=== PATIENT | male | born 1960 | race Caucasian/White ===

== ENCOUNTER 2025-05-02 05:25 | Observation (INO) ==
--- NOTE | 2025-04-04 10:02 | PAT Medication Instructions ---
Medication Instructions Date of Service April 04, 2025 Home Medications Medication Instructions Recorded albuterol sulfate 90 mcg/actuation 2 puff inhalation Q6H PRN 12/10/24 aerosol inhaler shortness of breath or wheezing #3 units tramadol 50 mg tablet 50 mg PO Q6H PRN pain #6 tabs 03/04/25 albuterol sulfate 90 mcg/actuation aerosol inhaler 2 puff inhalation Q6H PRN tafluprost (PF) 0.0015 % eye drops in a dropperette (Zioptan (PF)) 1 drp ophthalmic (eye) HS allopurinol 300 mg tablet 300 mg PO QAM amlodipine 10 mg-olmesartan 40 mg tablet 1 tab PO QAM fexofenadine 180 mg tablet (Rut Allergy) 180 mg PO QAM metoprolol succinate 100 mg tablet,extended release 24 hr 100 mg PO QAM tramadol 50 mg tablet 50 mg PO Q6H PRN DO NOT take the morning of surgery fexofenadine 180 mg tablet (Rut Allergy) 180 mg PO QAM Take morning of surgery With a small sip of water, OTHERWISE NOTHING TO EAT OR DRINK AFTER MIDNIGHT: albuterol sulfate 90 mcg/actuation aerosol inhaler 2 puff inhalation Q6H PRN(use if needed; please bring with you to hospital day of surgery if possible) allopurinol 300 mg tablet 300 mg PO QAM amlodipine 10 mg-olmesartan 40 mg tablet 1 tab PO QAM metoprolol succinate 100 mg tablet,extended release 24 hr 100 mg PO QAM tramadol 50 mg tablet 50 mg PO Q6H PRN(if needed) Take evening before surgery albuterol sulfate 90 mcg/actuation aerosol inhaler 2 puff inhalation Q6H PRN(if needed) tafluprost (PF) 0.0015 % eye drops in a dropperette (Zioptan (PF)) 1 drp ophthalmic (eye) HS tramadol 50 mg tablet 50 mg PO Q6H PRN(if needed) Other Notes If you have any questions please call us at [phone] or [phone] or [phone] or [phone]
--- NOTE | 2025-04-09 08:57 | Anesthesiology Consultation ---
Date of Service April 09, 2025 Assessment & Plan (1) Encounter for pre-operative examination: Chart Review Chart Review: Acceptable Risk for Surgery (pending preop labs ) and Patient seen in Pre Admission Testing - Awaiting CBC with diff, PRP, coags from Vigiglobe (patient was going after PAT appt 04/09/25) Pt currently scheduled as 23 hours observation. If surgeon decides to change patient to Same Day Joint, patient would be acceptable risk for TKA, pending patient is motivated, has good support and surgeon's office completes [facility] preop requirements. Per PAT appt on 04/09/25, no recent illness/disease exposures, illness related symptoms, or recent illness/disease positive tests. Will leave to surgeon's discretion if preop Covid testing needed Teaching & Discussion Pre-Anesthesia Teaching/Discussion Notes: Instructed NPO after midnight before surgery,except medications with 15 cc of water. Medication instructions provided according to the [facility] guidelines. History Surgery Operation Date: 05/02/25 12:00 Proposed Procedures p Robotic Assisted Right Total Knee Arthroplasty - Nathan Osborne DO Height/Weight Height: 5 ft 6 in Weight: 122 kg Allergies Allergy/AdvReac Type Severity Reaction Status Date / Time No Known Allergies Allergy Verified 04/01/25 08:26 Medications Home Medications Medication Instructions Recorded Confirmed Last Taken albuterol sulfate 90 mcg/actuation 2 puff inhalation Q6H PRN 12/10/24 04/03/25 Unknown aerosol inhaler shortness of breath or wheezing #3 units tafluprost (PF) 0.0015 % eye drops 1 drp ophthalmic (eye) HS 02/17/25 04/03/25 Unknown in a dropperette (Zioptan (PF)) allopurinol 300 mg tablet 300 mg PO QAM 02/21/25 04/03/25 03/04/25 05:00 amlodipine 10 mg-olmesartan 40 mg 1 tab PO QAM 02/21/25 04/03/25 03/04/25 05:00 tablet fexofenadine 180 mg tablet 180 mg PO QAM 02/21/25 04/03/25 Unknown (Rut Allergy) metoprolol succinate 100 mg 100 mg PO QAM 02/21/25 04/03/25 03/04/25 05:00 tablet,extended release 24 hr tramadol 50 mg tablet 50 mg PO Q6H PRN pain #6 tabs 03/04/25 04/03/25 Unknown Past Medical History Medical History History of asthma well controlled, rarely needs inhaler. History of gout no recent flares Hypertension Obesity Obstructive sleep apnea couldn't tolerate CPAP Osteoarthritis Seasonal allergies Exercise / Class Metabolic Activity II 4-5 Yardwork/Stairs/Walk up hill (one flight of stairs - no chest pain or SOB - recently hiking in [place] ) Past Family History Family History Mother Breast cancer Alzheimer disease Father Alzheimer disease Hypertension Prostate cancer Stroke Other Cancer Denies family history of Ovarian cancer Diabetes Depression Heart disease Myocardial infarction Lung cancer Colorectal cancer Past Surgical History Surgical History (Updated 04/09/25 @ 09:13 by Leann Green PA-C) H/O colonoscopy Colonoscopy 10/15/21, repeat 10 years in 2031 History of cataract surgery bilateral History of hand surgery (03/04/25) - right index finger mass excision (done under local anesthesia only) Hx of vasectomy under local Past Anesthesia History No Hx of Anesthesia Complications and No Family Hx of Anesthesia Complications History of PONV No Hx of PONV and No Hx of Motion Sickness Social History Smoking Status: Never smoker Do You Dip or Chew Tobacco: No Hx Alcohol Use: Yes Alcohol type: beer and wine alcohol intake frequency: a few times a month Hx Substance Use: No substance use type: does not use Review of Systems Patient denies chest pain, shortness of breath, dyspnea on exertion, reflux, cough, wheezing, palpitations. No hx of seizures, stroke, HI. No hx of blood clots or blood transfusions Physical Exam Vital Signs VITALS BP 148/89 P 67 TEMP 98.0 SP02 96% RESP 16 Constitutional no acute distress ENMT Mouth: no TMJ clicking Thyromental Distance: > or= 3.5 Finger Breadths (4.0) Mallampati Class: II (smaller airway ) Partial upper denture Neck neck extension not limited Respiratory normal respiratory effort; no respiratory distress Auscultation: lungs clear to auscultation bilaterally; no wheezes Cardiovascular Rate/Rhythm: regular rate and regular rhythm Heart Sounds: no murmur Vessels: no carotid bruit Musculoskeletal Spine: + pain with cervical ROM (mild) Extremities: extremities normal to inspection Psychiatric Orientation: alert Lab Results Anesthesia Preop Results Results Anesthesia Widget: Blood Type A Positive 04/09/25 Antibody Screen NEGATIVE 04/09/25 Testing Electrocardiogram Date: 02/19/25 Findings: + NSR @ (63bpm) Normal EKG per cardio Chest X-Ray Date: 04/09/25 Findings: + NAD
--- NOTE | 2025-05-01 12:22 | History & Physical Report ---
Date of Service May 01, 2025 Assessment & Plan (1) Osteoarthritis of right knee: We will proceed with a right total knee arthroplasty. Postoperatively, he can be started on aspirin for DVT prophylaxis and kept overnight in the hospital for postop medical management. He plans to use energy physical therapy at discharge. History of Present Illness Chief Complaint: Osteoarthritis of the right knee. Primary Care Provider: Cristopher Oneill DO Alejandro is a pleasant 64-year-old male who has been dealing with chronic increasing right knee pain. X-rays and clinical exam have been diagnostic for advanced osteoarthritis of the right knee. He has been treated by another provider in our office. He has had multiple injections. Unfortunately, he is still dealing with a lot of knee pain. After failed extensive conservative treatment, he has elected to proceed with a right total knee arthroplasty. Allergies Allergy/AdvReac Type Severity Reaction Status Date / Time No Known Allergies Allergy Verified 04/01/25 08:26 Home Medications Medication Instructions Recorded Confirmed Type albuterol sulfate 90 mcg/actuation 2 puff inhalation Q6H PRN 12/10/24 04/03/25 Rx aerosol inhaler shortness of breath or wheezing #3 units tafluprost (PF) 0.0015 % eye drops 1 drp ophthalmic (eye) HS 02/17/25 04/03/25 History in a dropperette (Zioptan (PF)) allopurinol 300 mg tablet 300 mg PO QAM 02/21/25 04/03/25 History amlodipine 10 mg-olmesartan 40 mg 1 tab PO QAM 02/21/25 04/03/25 History tablet fexofenadine 180 mg tablet 180 mg PO QAM 02/21/25 04/03/25 History (Rut Allergy) metoprolol succinate 100 mg 100 mg PO QAM 02/21/25 04/03/25 History tablet,extended release 24 hr tramadol 50 mg tablet 50 mg PO Q6H PRN pain #6 tabs 03/04/25 04/03/25 Rx Past Med/Surg History Problem List (Updated 05/01/25 @ 12:22 by Nathan Osborne DO) Osteoarthritis of right knee Encounter for pre-operative examination History of hand surgery History of gout Obstructive sleep apnea Osteoarthritis of knees, bilateral DJD (degenerative joint disease) of knee Left knee pain HTN (hypertension) Medical History Obesity Obstructive sleep apnea couldn't tolerate CPAP History of gout no recent flares Hypertension Osteoarthritis History of asthma well controlled, rarely needs inhaler. Seasonal allergies Surgical History History of hand surgery (03/04/25) - right index finger mass excision (done under local anesthesia only) History of cataract surgery bilateral H/O colonoscopy Colonoscopy 10/15/21, repeat 10 years in 2031 Hx of vasectomy under local Family History Mother Breast cancer Alzheimer disease Father Alzheimer disease Hypertension Prostate cancer Stroke Other Cancer Denies family history of Ovarian cancer Diabetes Depression Heart disease Myocardial infarction Lung cancer Colorectal cancer Social History Smoking Status: Never smoker Second Hand Exposure: No; Do You Dip or Chew Tobacco: No; Tobacco Cessation Education Requested by Patient: No Hx Alcohol Use: Yes Alcohol type: beer and wine Alcohol Intake Frequency: 2-4 x/Month Hx Substance Use: No Preferred Language: Telugu Communication Ability: Effective Visual Impairment: No Limitations Hearing Ability: Normal Supply Clerk Required: No Beliefs That Will Affect Care: None marital status: Current Living Situation: Spouse current occupational status: employed How many Children do You have: 2 Other Information That Helps Us Care for You: No Feels Safe at Home: Yes Safety Concerns: Feels Safe At This Time Childhood Exposure to Second-Hand Smoke: Yes Diet: regular caffeine: Yes during the past year weight has: remained stable Dental Care, Regularly: Yes Physical Activity Frequency: Daily Physical Activity Frequency Comment: walking Seatbelt Use: always Sunscreen Use: Yes Assistive Devices: Denture - Upper Review of Systems All systems reviewed & are unremarkable except as noted in HPI & below. Physical Exam On physical exam of the right knee, he had a slight varus deformity. Tenderness palpation of the distal medial femoral condyle and over the medial joint line.. Constitutional WD/WN, vitals as above Eyes PERRL, conjunctivae normal, anicteric sclerae ENMT external ear and nose normal, oropharynx normal Neck trachea midline, no thyromegaly Respiratory normal respiratory effort Cardiovascular RRR, no murmur, no edema Gastrointestinal (Abdomen) normal bowel sounds, soft, nontender, no hepatosplenomegaly Psychiatric A+Ox3, euthymic affect Results & Data Results & Data Laboratory Results . Diagnostic Findings X-rays of the right knee show advanced medial compartmental arthritis with joint space narrowing, osteophyte formation, and peck-gl-wlhm tubulation. PG Care Time/CCT Total # of Minutes Spent Total Time Spent with Patient: Total time spent is greater than 50% in coordination of care (as documented) at patient's floor/unit and/or counseling patient: Coding Level of Care Code None Diagnoses Osteoarthritis of right knee M17.11
[2025-05-02] MEDS: FAMOTIDINE 20 MG TAB PO SCH (05:53)
[2025-05-02] MEDS: ACETAMINOPHEN 500 MG TAB PO SCH ×2 (05:53→13:13)
[2025-05-02] MEDS: GABAPENTIN 600 MG DOSE PO SCH (05:53)
[2025-05-02] MEDS: LR 500ML BOLUS, THEN 15ML/HR IV SCH (05:58)
[2025-05-02] MEDS ORDERED: BUPIVACAINE 0.5 % 5 MG/1 ML PF 10ML VIAL ONE (06:05)
[2025-05-02] MEDS ORDERED: ROPIVACAINE 0.5% 5 MG/ML 30 ML VIAL ONE (06:06)
[2025-05-02] MEDS ORDERED: BUPIVACAINE 0.25% PF 30 ML VIAL ONE (06:17)
[2025-05-02] MEDS ORDERED: EPINEPHrine INJ 1 MG/ML AMP ONE (06:18)
[2025-05-02] MEDS ORDERED: DEXAMETHASONE SOD INJ 4 MG/ML VIAL ONE (06:18)
--- NOTE | 2025-05-02 06:28 | History & Physical Bridge Note ---
Date of Service May 02, 2025 History & Physical Bridge Note I have examined the patient, reviewed the History & Physical and in the interval since the performance of the History & Physical I have noted the following changes of clinical significance: no changes noted
[2025-05-02] MEDS ORDERED: MIDAZOLAM HCL 1 MG/ML 2ML VIAL ONE (06:35)
[2025-05-02] MEDS ORDERED: LIDOCAINE 2% 2 ML VIAL/AMP(20MG/ML) INFIL ONE ×2 (06:36)
[2025-05-02] MEDS ORDERED: PROPOFOL IV EMULSION 10 MG/ML 100 ML VIAL IV ONE (06:37)
[2025-05-02] MEDS ORDERED: PROPOFOL IV EMULSION 10 MG/ML 20 ML VIAL IV ONE (06:37)
[2025-05-02] MEDS: TRANEXAMIC ACID 1,000 MG **IV Pre-op IV SCH (06:49)
[2025-05-02] MEDS ORDERED: ATROPINE SULFATE 0.1 MG/ML 10ML SYR IV PRN (06:59)
[2025-05-02] MEDS ORDERED: ONDANSETRON INJ 2 MG/ML 2 ML VIAL IV PRN ×2 (06:59→09:54)
[2025-05-02] MEDS ORDERED: PROMETHAZINE HCL 6.25 MG in SODIUM CHLORIDE 0.9% 50 ML IV PRN (06:59)
[2025-05-02] MEDS: ceFAZolin 3000MG 3,000 MG/72.5 ML BAG IV SCH (07:00)
[2025-05-02] MEDS ORDERED: KETAMINE HCL 10MG/ML SYR ONE (07:07)
[2025-05-02] MEDS ORDERED: PHENYLEPHRINE HCL 10 MG/ML VIAL ONE ×2 (07:14)
[2025-05-02] MEDS ORDERED: VASOPRESSIN 20 UNIT/ML VIAL ONE (07:23)
[2025-05-02] MEDS: ORTHO JOINT ANESTHETIC ONE (07:34)
[2025-05-02] MEDS: ROPIV 0.5% 246mg, Ketorolac 30mg, EPINEPHrine 0.5mg in NSS INFIL SCH (07:34)
--- NOTE | 2025-05-02 08:23 | Operative Report ---
PG Post Operative Report Pre & Post Diagnosis Operation Date: 05/02/25 07:00 Pre-Op Diagnosis: Right Knee Arthritis Post-Op Diagnosis: Right Knee Arthritis I identified the patient and participated in the time-out.: Yes Procedure Operation Date: 05/02/25 07:00 Actual Procedures p Robotic Assisted Right Total Knee Arthroplasty, Cemented(Right) - Nathan Osborne DO Surgeon Nathan Osborne DO Molecular Spectroscopist Roderick Sahni PA-C Estimated Blood Loss 30 Findings Consistent with Post-Op Diagnosis Specimens Right femoral and tibial bone Description of Procedure Implants used: I used a [employer] total knee arthroplasty system with a size 9 standard PS femur, F tibia, 34 oval patella, and a size 12 CPS polyethylene bearing. All components were cemented in place with Biomet cement. Alejandro arrived [facility] for the above procedure. He was seen in the preoperative holding area and the operative extremity was identified and signed. he was given a preoperative antibiotic, TXA, a spinal anesthetic and an adductor nerve block. He was taken back to the operating room and laid on the table in supine position. He was given basic sedation. The operative knee was then prepped and draped in sterile fashion. A timeout was done, and the patient and the operative extremity was properly identified. A midline incision was made directly over the patella. Dissection was taken down to the extensor mechanism. A medial parapatellar arthrotomy was used. The medial retinaculum was released and the fat pad was mostly excised. The knee was flexed and the ACL, PCL, and meniscus were removed. The alignment of the knee replacement was assisted with a [employer] robotic knee. The femoral array was pinned in the distal femur and the tibial array was pinned using a percutaneous technique in the upper shaft of the tibia. The robot was appropriately calibrated and the structure of the knee was mapped out. The components were then manipulated on the screen to account for any malalignment and to assist in gap balancing. Once I was happy with the placement of the components on the screen, a distal femoral cutting guide was brought in place. The distal femur was then resected. The femur measured to be a size 9. A 4-in-1 cutting block was then put into place by the robot and 2 peg holes were drilled. The 4-in-1 cutting block was then impacted into place and anterior, posterior, and chamfer cuts were made. The cutting block was then brought down to the tibia and pinned into place. The proximal tibia was then resected. The posterior aspect of the knee was then opened up and any additional meniscus fragments and osteophytes were removed. The tibia measured to be a size F. The tibial plate was then placed in the appropriate rotation and the tibia was drilled and punched. Trial components were then placed. The patella was then everted and 9 mm was resected off the posterior aspect of the patella. The patella measured to be a size 34 oval. 3 peg holes were then drilled. A trial patella was placed. A size 12 CPS polyethylene insert was then trialed. The knee was brought through a full range of motion and felt to be stable. Trial components were then removed. The surrounding soft tissues were injected with 100 cc of an orthopedic pain control cocktail. All components were then cemented into place with Biomet cement. The final polyethylene insert was then snapped into place. Once cement was dry the tourniquet was deflated. Hemostasis was obtained. A dilute betadyne lavage was then done for 3 minutes. The joint was then irrigated with normal saline solution. The medial parapatellar arthrotomy was then closed with #1 Vicryl suture. The skin was ryan sed with 2-0 Vicryl, 3-0V lock suture, and Mike zip line. A soft compressive dressing was placed. He was then transferred to a hospital bed and taken to the postanesthesia care unit in stable condition. He tolerated the procedure well. Roderick Sahni PA-C, was present for the entire procedure. He was critical for patient positioning, prepping, draping, retraction exposure, wound closure and application of sterile dressing. I attest to the content of the Intraoperative Record and any orders documented therein. Any exceptions are noted below.
--- NOTE | 2025-05-02 09:11 | XRay Report ---
XR knee RT 1 or 2V routine CLINICAL HISTORY: Postoperative evaluation. COMPARISON: Right knee radiographs February 17, 2025. FINDINGS: Alignment of the total right knee arthroplasty is anatomic. There is no periprosthetic fra cture or unexpected radiopaque foreign body. IMPRESSION: Expected findings following total right knee arthroplasty. ACT 112: Negative or not required by law. Electronically signed by: Latrell Fallon M.D. 05/02/2025 9:09 AM
[2025-05-02] MEDS: dexAMETHasone**PF** 10 MG/ML VIAL IV SCH (09:53)
[2025-05-02] MEDS: LR 60ML/HR IV SCH (09:53)
[2025-05-02] MEDS ORDERED: HYDROmorphone INJ 0.5 MG/0.5 ML SYR IV PRN (09:54)
[2025-05-02] MEDS ORDERED: MAGNESIUM HYDROXIDE SUSP 30 ML UDC PO PRN (09:54)
[2025-05-02] MEDS ORDERED: METOCLOPRAMIDE HCL INJ 5 MG/ML 2 ML VIAL IV PRN (09:54)
[2025-05-02] MEDS ORDERED: ALBUTEROL HFA 8 GM INHALER INH PRN (09:54)
[2025-05-02] MEDS ORDERED: NALOXONE HCL 0.4 MG/1 ML VIAL/CARP IV PRN (09:54)
[2025-05-02] MEDS: SODIUM CHLORIDE 0.9% 1,000 ML IV SCH (10:33)
[2025-05-02] MEDS: KETOROLAC TROMETHAMINE 15 MG/ML VIAL IV SCH (11:15)
[2025-05-02] MEDS: DOCUSATE SODIUM 100 MG CAP PO SCH (11:15)
[2025-05-02] MEDS: MULTIVITAMIN TAB PO SCH (11:17)
[2025-05-02] MEDS: ASPIRIN 81 MG ECTAB PO SCH (11:17)
[2025-05-02] MEDS: NON-FORMULARY MEDICATION (Amlodipine-Olmesartan 10-40 mg tablet) PO SCH (11:22)
[2025-05-02] MEDS ORDERED: diphenhydrAMINE Capsule 25 MG CAP PO PRN (12:00)
[2025-05-02] MEDS ORDERED: TAMSULOSIN HCL 0.4 MG CAP PO PRN (12:00)
--- NOTE | 2025-05-02 12:10 | Anesthesiology Progress Note ---
Date of Service May 02, 2025 Anesthesia Post Procedure Vital Signs Vital Signs: Temp Pulse Pulse Resp BP BP Pulse Ox 05/02/25 11:00 36.6 C 72 18 119/72 95 05/02/25 10:30 36.6 C 66 18 133/84 96 05/02/25 10:16 05/02/25 10:00 36.5 C 78 16 124/83 95 05/02/25 09:40 80 12 118/69 94 05/02/25 09:30 83 18 124/73 95 05/02/25 09:20 79 13 108/71 92 05/02/25 09:10 36.4 C L 83 16 111/69 92 05/02/25 09:00 82 14 103/69 94 05/02/25 08:50 36.4 C L 76 16 105/61 93 05/02/25 05:45 36.9 C 81 20 171/93 H 96 O2 Del Method O2 Flow Rate 05/02/25 11:00 Room Air 05/02/25 10:30 Nasal Cannula 1 05/02/25 10:16 Nasal Cannula 2 05/02/25 10:00 Nasal Cannula 2 05/02/25 09:40 Nasal Cannula 3 05/02/25 09:30 Oxymask 8 05/02/25 09:20 Oxymask 8 05/02/25 09:10 Oxymask 8 05/02/25 09:00 Oxymask 10 05/02/25 08:50 Oxymask 12 05/02/25 05:45 Room Air Pain Intensity Right Knee: Pain Intensity: 3 Transfer of Care Handoff Completed per policy Notes Mental Status: alert / awake / arousable Patient Amnestic to Procedure: Yes Nausea / Vomiting: adequately controlled Pain: adequately controlled Airway Patency, RR, SpO2: stable & adequate BP & HR: stable & adequate Hydration State: stable & adequate Neuraxial Anesthesia: was administered and sensory block is resolving Anesthetic Complications: no major complications apparent and Pt Satisfied with anesthetic care
[2025-05-02] MEDS: SENNA 8.6 MG TAB PO SCH (21:15)
[2025-05-03 07:13] VITALS: BP 134/74; PULSE 69; RESP 20; TEMP 97.7; O2SAT 94
--- NOTE | 2025-05-03 07:50 | Orthopedic Progress Note ---
Date of Service May 03, 2025 Assessment & Plan (1) Status post total right knee replacement: Overall he is doing very well. He is not having much pain in the right knee. He will be seen by physical therapy today for ambulation and range of motion exercises. The nursing staff can change his dressing after physical therapy. He is on aspirin for DVT prophylaxis. He can be discharged to home later today. He will follow-up with orthopedics in 2 weeks. Jean Carlos Allen was seen and examined at bedside this morning. Overall he is doing very well. He is not having much pain in the right knee. Has been up and ambulating to the bathroom. He has no complaints.. Review of Systems All systems reviewed & are unremarkable except as noted in HPI & below. Physical Exam On physical exam of the right knee, the dressing has a little bit of bloody drainage but not much. He can bend his knee to 90 degrees.. Results & Data Results & Data Laboratory Results . Diagnostic Findings Postoperative x-rays of the right knee show the prosthesis to be in anatomic alignment without any evidence of fracture, dislocation, or loosening.. PG Care Time/CCT Total # of Minutes Spent Total Time Spent with Patient: Total time spent is greater than 50% in coordination of care (as documented) at patient's floor/unit and/or counseling patient: Coding Level of Care Code 79669 Post Operative Follow-Up Diagnoses Status post total right knee replacement Z96.651
[2025-05-03] MEDS: METOPROLOL SUCC 50MG EXT REL TAB PO SCH (09:18)
[2025-05-03] MEDS: LOSARTAN POTASSIUM 50 MG TAB PO SCH (09:18)
[2025-05-03] MEDS: FEXOFENADINE HCL 180 MG TAB PO SCH (09:18)
== END 2025-05-03 10:34 | disposition home or self-care (01) ==
LOC: ASU 05:25 → 3E 05:25